=== PATIENT | female | born 1955 | race Hispanic/Latino ===

== ENCOUNTER 2020-04-04 10:20 | Emergency (ER) | payer OTHER ==
[~2020-04-04] VITALS: Ht 162.6 cm; Wt 4.5 kg
--- OUTSIDE RECORDS SUMMARY | 2020-04-04 10:23 | XMS REPORT ---
Author Author [facility] Organization [facility] Address Unknown Phone Unavailable Care Team Providers Care Public Health Technician Name Role Phone Unavailable Unavailable Problems This patient has no known problems. Allergies, Adverse Reactions, Alerts This patient has no known allergies or adverse reactions. Medications This patient has no known medications. Results Test Description Test Time Test Comments Text Results Atomic Results Result Comments SALLY, BONE DENSITY STUDY 2019-01-18 14:09:00 Reason for Exam:->leonides bustamante FINAL REPORT Bone mineral density study 01/18/2019. HISTORY PROVIDED: 63-year-old postmenopausal woman presents for screening for osteoporosis. COMPARISON: 04/02/2016 FINDINGS: Evaluation of the left and right femoral necks and lumbar spine was performed utilizing a bone densitometer. The left femoral neck bone mineral density is 0.864gm/cm2, the T-score is -1.3, and the Z-score is 0.1. The right femoral neck bone mineral density is 0.876gm/cm2, the T-score is -1.2, and the Z-score is 0.2. The lumbar spine total bone mineral density is 1.146gm/cm2, the T-score is -0.3, and the Z-score is 1.2. IMPRESSION: WHO classification of osteopenia for the bilateral femoral necks. WHO classification of normal for the lumbar spine. Compared to the prior exam, the bone mineral density of the lumbar spine demonstrates a 7.4% decrease. The bone density of the left femoral neck demonstrates a 4.7% decrease. The bone mineral density of the right femoral neck demonstrates a 3.6% decrease. Diagnostic criteria (World Health Organization)-Normal: BMD measurement less than one standard deviation from young adult populationOsteopenia: BMD measurement between 1 and 2.4 standard deviations belowOsteoporosis: BMD measurement greater than or equal to 2.5 standard deviations belowSevere osteoporosis: Osteoporosis and one or more fragility fractures Signed: Vinay Yin Verified Date/Time: 01/18/2019 14:09:58 Reading Location: [address] Reading Room
--- OUTSIDE RECORDS SUMMARY | 2020-04-04 10:23 | XMS REPORT | Clinical Summary ---
Author Author [facility] Address Unknown Phone Unavailable Care Team Providers Care Makeup Editor Name Role Phone Jasmyn Bishop PCP Unavailable Allergies No Known Allergies Medications End Date Status Medication Sig Dispensed Refills Start Date Active gemfibrozil (LOPID) 600 Take 600 mg 0 MG tablet by mouth 2 (two) times daily before meals. Active estradiol (ESTRACE) 0.5 Take 0.5 mg 0 MG tablet by mouth daily. Active Problems Problem Noted Date Hypercholesterolemia 08/29/2014 Hypertension 08/29/2014 Family History Medical History Relation Name Comments Cancer Father Hyperlipidemia Mother Kidney disease Mother Relation Name Status Comments Father Mother Social History Date Tobacco Use Types Packs/Day Years Used Never Smoker Smokeless Tobacco: Never Used Alcohol Use Drinks/Week oz/Week Comments No Sex Assigned at Date Recorded Not on file Industry Job Start Date Occupation Not on file Not on file Not on file Travel End Travel History Travel Start No recent travel history available. Last Filed Vital Signs Not on file Plan of Treatment Not on file Results Not on fileafter 04/04/2019 Insurance Payer Benefit Subscriber ID Type Phone Address Plan / Group [employer] - [employer] CARE [employer] xxxxxxxxxxx HMO/POS HMO/POS/OP EN ACCESS [phone]
[2020-04-04] MEDS ORDERED: PREDNISONE50 MG PO (11:14)
[2020-04-04] MEDS ORDERED: ULTRAM 50MG50 MG PO (11:14)
--- NOTE | 2020-04-04 11:17 | Emergency Department Note ---
History of Present Illnes History of Present Illness Chief Complaint: Extremity Trauma/Pain Stated Complaint: TENNIS ELBOW, INJURY History of Present Illness This is a 65 year old female c/o right elbow pain after repetitive used for one week, hard to bend, and sleep at night. Pt declines imaging studies. Her sister is a nurse rec her to see her PCP but pt could not see her PCP so she is here. . 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 Any updates have been documented here. Past Medical History Recent Fever: No Clinical Suspicion of Infectio: No New/Unexplained Change in Ment: No Past Medical History: Hypertension Other Medical History: high cholesterol Past Surgical History: Appendectomy Other Surgery: hysterectomy Social History Smoking Cessation: Never Smoker Alcohol Use: Occasional Any Illegal Drug Use: No TB Exposure/Symptoms: No Physically hurt or threatened: No Family History Family history of heart diseas: No Other Last Tetanus: unknown Any Pre-Existing Lines (PICC,: No Review of Systems Review of Systems Constitutional: no symptoms EENTM: no symptoms Cardiovascular: no symptoms Gastointestinal/Abdominal: no symptoms Genitourinary: no symptoms Musculoskeletal: as per HPI, joint pain, joint swelling Integumentary: no symptoms Neurological: no symptoms Psychological: no symptoms Hematological/Lymphatic: no symptoms Review of other systems All other systems reviewed and negative. Physical Exam Related Data Allergies: Coded Allergies: No Known Drug Allergies (Verified Allergy, Mild, 10/21/09) Exam Narrative Exam Narrative in NAD Physical Exam CONSTITUTIONAL Constitutional: well-developed, well-nourished HENT HENT: normocephalic, atraumatic, oropharynx clear/moist EYES Eyes: PERRL, conjunctivae normal, EOM normal, lids normal NECK Neck: ROM normal, supple PULMONARY Pulmonary: effort normal CARDIOVASCULAR Cardiovascular: regular rhythm GASTROINTESTINAL Abdominal: soft, nontender GENITOURINARY Genitourinary: exam deferred SKIN Skin: warm, dry MUSCULOSKELETAL right elbow has limited ROM, unable to bend beyond 120 degree Musculoskeletal: swelling NEUROLOGICAL walks steady gaits Neurological: alert, oriented x 3, no gross motor or sensory deficits PSYCHOLOGICAL Psychiatric/behavioral: mood/affect normal Critical Care Time Subsequent provider I assumed direction of critical care for this patient from another provider of my specialty. Assessment & Plan Assessment & Plan Problems: (1) Elbow disorder (2) Right elbow tendinitis Depart Disposition: HOME, SELF-shelter Meds Active Scripts Prednisone (PREDNISONE) 50 Mg Tablet, 50 MG PO DAILY@0600 for 5 Days, #30 TAB Prov:LUIS FELIPE JHA MD 04/04/20 Tramadol Hcl* (ULTRAM 50MG*) 50 Mg Tab, 50 MG PO HS PRN for MUSCLE SPASMS, #30 TAB Prov:LUIS FELIPE JHA MD 04/04/20 Attestation Medications in the ED STRIP[employer] Rx risk score checked: no record available LUIS FELIPE JHA MD April 04, 2020 10:50
== END 2020-04-04 11:02 | disposition home or self-care (01) ==
LOC: FSED 10:20
DX: M25.521 Pain in right elbow (principal); M25.821 Other specified joint disorders, right elbow; M77.9 Enthesopathy, unspecified; Y93.H2 Activity, gardening and landscaping; I10 Essential (primary) hypertension; E78.5 Hyperlipidemia, unspecified
CPT/HCPCS: 99282